=== PATIENT | female | born 1985 | race Caucasian/White ===

== ENCOUNTER → 2016-12-02 | Outpatient (CLI) | payer BC ==
[~2016-12-02] MED LIST: IBUP-1547 PO; OXYC-541 PO; PREN1TAB77 PO
[2016-12-02 12:02] LABS: HCG-QUANTITATIVE 59545 mIU/mL
== END ==
LOC: LAB 10:52
PROVIDERS: ATTEND Family Medicine
DX: O20.0 Threatened abortion (principal)
CPT/HCPCS: 36415; 84702

== ENCOUNTER → 2016-12-05 | Outpatient (CLI) | payer BC ==
--- NOTE | 2016-12-05 10:46 | DI ---
EXAM: US OB <14 WKS WITH TRANSVAG LOCATION OF DICTATION: [facility] IC COMPARISON: None available. HISTORY: ITS.REASON: O26.859 SPOTTING PER VAGINA IN FINDINGS: There is suggestion of uterine didelphys with intrauterine in the left uterine horn. Small subchorionic hemorrhage is demonstrated. Single intrauterine demonstrating normal cardiac activity with a heart rate of 125 bpm. The gestational sac is visualized. The pole crown-rump length measures 0.57 cm, correlating with a gestational age of six weeks and three days. The yolk sac is visualized and measures 0.29 cm. There is a right-sided corpus luteum cyst noted. The right and left adnexa are within normal limits. IMPRESSION: 1. Single living early intrauterine with estimated gestational age of six weeks and three days with estimated date of delivery of 07/28/2017. This is concordant with the last menstrual period. 2. Normal cardiac activity measuring 125 bpm. 3. Small subchorionic hematoma. 4. Uterine didelphys suggested with intrauterine and the region of the left uterine horn. .
== END ==
LOC: IMA 09:44
PROVIDERS: ATTEND Family Medicine
DX: Z34.91 Encounter for supervision of normal pregnancy, unspecified, first trimester (principal); Z3A.01 Less than 8 weeks gestation of pregnancy; Z36 Encounter for antenatal screening of mother; Q51.3 Bicornate uterus